=== PATIENT | female | born 1970 | race Caucasian/White ===

== ENCOUNTER 2017-10-14 05:31 | Day surgery (SDC) | payer OTHER ==
[~2017-10-14] VITALS: Ht 160 cm; Wt 103.4 kg
[~2017-10-14 05:31] MED LIST: ERGOCALCIF50000 UNIT PO; ROCALTROL0.25 MCG PO; TUMS500 MG PO; ZESTRIL20 MG PO; ZOLOFT100 MG PO
[2017-10-14 06:05] VITALS: BP 110/66
[2017-10-14 06:26] LABS: HEMATOCRIT 31.9 % (36.0-46.0); HEMOGLOBIN 10.8 G/DL (11.9-15.5); MCH 29.8 PG (29.0-34.0); MCHC 33.9 G/DL (30.0-36.0); MCV 88.1 FL (83-99); PLATELET COUNT 211 K/uL (156-360); RBC DIS.WIDTH-CV 13.8 % (11.8-14.6); RBC DIS.WIDTH-SD 44.8 % (39-53); RED BLOOD COUNT 3.62 M/uL (3.80-5.20); WHITE BLOOD COUNT 9.8 K/uL (4.1-10.2)
[2017-10-14 06:35] LABS: CHLORIDE 110 mEq/L (99-109); POTASSIUM 4.9 mEq/L (3.7-5.4); SODIUM 135 mEq/L (136-147)
[2017-10-14 06:37] LABS: GLUCOSE 99 mg/dL (70-99)
[2017-10-14 06:41] LABS: CREATININE 5.5 mg/dL (0.6-1.3); GFR ESTIMATE (CALCULATED) 9 mL/min/; UREA NITROGEN (BUN) 97 mg/dL (9-23)
[2017-10-14] MEDS ORDERED: NORCO 5/3251 TABLET PO (09:56)
[2017-10-14 10:37] VITALS: BP 114/72
[2017-10-14 11:51] VITALS: BP 109/71
[2017-10-14 15:29] VITALS: BP 113/66
== END 2017-10-14 15:52 | disposition home or self-care (01) ==
LOC: SDC 05:31
PROVIDERS: Surgery
DX: I12.0 Hypertensive chronic kidney disease with stage 5 chronic kidney disease or end stage renal disease (principal); N18.6 End stage renal disease; K42.9 Umbilical hernia without obstruction or gangrene; Z76.82 Awaiting organ transplant status; Q61.2 Polycystic kidney, adult type; E21.1 Secondary hyperparathyroidism, not elsewhere classified; F41.8 Other specified anxiety disorders; Z85.828 Personal history of other malignant neoplasm of skin; E66.9 Obesity, unspecified; Z68.38 Body mass index [BMI] 38.0-38.9, adult
CPT/HCPCS: 80048; 85027; 93005; C1750; C1781; J0330; J0690; J1100; J1170; J2250; J2405; J2710; J7643; Q0175; S0020